=== PATIENT | female | born 1985 | race Caucasian/White ===

== ENCOUNTER 2020-05-25 07:56 | Inpatient (IN) | payer OTHER ==
[~2020-05-25] VITALS: Ht 170.2 cm; Wt 80.9 kg
[2020-05-25] MEDS ORDERED: D5%-LACTATED RINGERS 1,000 ML IV SCH (08:56)
[2020-05-25] MEDS ORDERED: LACTATED RINGERS 1,000 ML IV SCH (08:56)
[2020-05-25] MEDS ORDERED: OXYTOCIN 30U/ 0.9% NaCL 500ML 500 ML IV ONE (08:56)
[2020-05-25] MEDS ORDERED: FENTANYL PF 100 MCG/2ML IV PRN (09:00)
[2020-05-25] MEDS ORDERED: TERBUTALINE 1 MG/ML, 1ML SQ PRN (09:00)
[2020-05-25] MEDS ORDERED: TERBUTALINE 1 MG/ML, 1ML IVPush PRN (09:00)
[2020-05-25] MEDS ORDERED: FENTANYL PF 100 MCG/2ML IVPush PRN (09:00)
[2020-05-25] MEDS ORDERED: PENICILLIN GK 5,000,000 UNITS in DEXTROSE 5% 100 ML IVPB ONE (09:00)
[2020-05-25] MEDS ORDERED: ONDANSETRON 2MG/ML, 2ML IVPush PRN (09:00)
[2020-05-25 09:07] VITALS: BP 107/57
[2020-05-25] MEDS ORDERED: NEWBORN KIT ONE (09:16)
[2020-05-25] MEDS ORDERED: LIDOCAINE 1%, 20ML ONE (09:16)
[2020-05-25] MEDS ORDERED: OXYTOCIN 30U/ 0.9% NaCL 500ML 500 ML ONE ×2 (09:17→13:07)
[2020-05-25] MEDS ORDERED: MISOPROSTOL 200 MCG TABLET ONE (09:17)
[2020-05-25 09:36] LABS: BASOPHILS # (AUTO) 0.03 x10^3/uL (0-0.1); BASOPHILS % (AUTO) 0 % (0-1); EOSINOPHILS # (AUTO) 0.02 x10^3/uL (0-0.4); EOSINOPHILS % (AUTO) 0 % (1-7); LYMPHOCYTES # (AUTO) 1.01 x10^3/uL (1-3.4); LYMPHOCYTES % (AUTO) 11 % (22-44); MD NO; MEAN CORPUSCULAR HEMOGLOBIN 31.8 pg (27.0-34.8); MEAN CORPUSCULAR VOLUME 96.5 fL (80-100); MEAN PLATELET VOLUME 8.6 fL (7.4-10.4); MONOCYTES # (AUTO) 0.48 x10^3/uL (0.2-0.8); MONOCYTES % (AUTO) 5 % (2-9); NEUTROPHILS # (AUTO) 7.28 x10^3/uL (1.8-6.8); NEUTROPHILS % (AUTO) 83 % (42-75); PLATELET COUNT 229 x10^3/uL (130-400); RED BLOOD COUNT 3.85 x10^6/uL (3.82-5.3)
[2020-05-25] MEDS ORDERED: TERBUTALINE 1 MG/ML, 1ML ONE (11:47)
[2020-05-25] MEDS ORDERED: OXYTOCIN 30U/ 0.9% NaCL 500ML 500 ML IV SCH (12:52)
[2020-05-25] MEDS ORDERED: METOCLOPRAMIDE 5 MG/ML, 2ML IV PRN (13:00)
[2020-05-25] MEDS ORDERED: MAGNESIUM HYDROXIDE 8%, 30ML UDC PO PRN (13:00)
[2020-05-25] MEDS ORDERED: METHYLERGONOVINE 0.2 MG/ML IM PRN (13:00)
[2020-05-25] MEDS ORDERED: ACETAMINOPHEN 325 MG TABLET PO PRN (13:00)
[2020-05-25] MEDS ORDERED: CALCIUM CARBONATE 500 MG TAB.CHEW PO PRN (13:00)
[2020-05-25] MEDS ORDERED: ONDANSETRON 2MG/ML, 2ML IV PRN (13:00)
[2020-05-25] MEDS ORDERED: RHOGAM FROM BLOOD BANK 1 NOTE EA IM/IV ONE ×2 (13:00→22:30)
[2020-05-25] MEDS ORDERED: TRANEXAMIC ACID 100 MG/ML, 10ML IV ONE (13:00)
[2020-05-25] MEDS ORDERED: BISACODYL 10 MG SUPP PR PRN (13:00)
[2020-05-25] MEDS ORDERED: MEASLES,MUMPS&RUBELLA VACC/PF 0.5 ML SQ-VACC PRN (13:00)
[2020-05-25] MEDS ORDERED: MISOPROSTOL 200 MCG TABLET PR PRN (13:00)
[2020-05-25] MEDS ORDERED: OXYcodone IR 5MG TABLET PO PRN (13:00)
[2020-05-25] MEDS ORDERED: CARBOPROST TROMETHAMINE 250 MCG/ML, 1ML IM PRN (13:00)
[2020-05-25] MEDS ORDERED: IBUPROFEN 600 MG TABLET PO PRN (13:00)
[2020-05-25] MEDS ORDERED: SIMETHICONE 80 MG CHEW TAB PO PRN (13:00)
[2020-05-25] MEDS ORDERED: OXYcodone/APAP 5/325MG TABLET PO PRN (13:00)
[2020-05-25] MEDS ORDERED: PENICILLIN GK 2,500,000 UNITS in DEXTROSE 5% 100 ML IVPB SCH (13:00)
[2020-05-25] MEDS: OXYTOCIN 30U/ 0.9% NaCL 500ML 500 ML IV SCH ×4 (14:00→15:44)
[2020-05-25 15:10] VITALS: BP 118/75
[2020-05-25 19:30] VITALS: BP 122/72
[2020-05-25 21:20] LABS: BASOPHILS # (AUTO) 0.04 x10^3/uL (0-0.1); BASOPHILS % (AUTO) 0 % (0-1); EOSINOPHILS # (AUTO) 0.02 x10^3/uL (0-0.4); EOSINOPHILS % (AUTO) 0 % (1-7); LYMPHOCYTES # (AUTO) 1.43 x10^3/uL (1-3.4); LYMPHOCYTES % (AUTO) 10 % (22-44); MD NO; MEAN CORPUSCULAR HEMOGLOBIN 32.5 pg (27.0-34.8); MEAN CORPUSCULAR HGB CONC 33.8 g/dL (32.4-35.8); MEAN PLATELET VOLUME 8.8 fL (7.4-10.4); MONOCYTES # (AUTO) 0.75 x10^3/uL (0.2-0.8); MONOCYTES % (AUTO) 5 % (2-9); NEUTROPHILS # (AUTO) 12.66 x10^3/uL (1.8-6.8); NEUTROPHILS % (AUTO) 85 % (42-75); PLATELET COUNT 212 x10^3/uL (130-400); RED BLOOD COUNT 3.48 x10^6/uL (3.82-5.3); RED CELL DISTRIBUTION WIDTH 12.5 % (9.6-15.2)
[2020-05-26] VITALS: BP 109/46
[2020-05-26] MEDS: DOCUSATE 100 MG CAPSULE PO PRN ×3 (00:02→19:26)
[2020-05-26] MEDS: OXYTOCIN 30U/ 0.9% NaCL 500ML 500 ML IV SCH (01:27)
[2020-05-26 04:20] VITALS: BP 107/64
[2020-05-26 07:30] VITALS: BP 122/72
[2020-05-26] MEDS: PRENATAL VIT/IRON/FA 1 EACH TABLET PO SCH (09:00)
[2020-05-26 19:45] VITALS: BP 129/70
[2020-05-27] MEDS: DOCUSATE 100 MG CAPSULE PO PRN (07:55)
[2020-05-27] MEDS: PRENATAL VIT/IRON/FA 1 EACH TABLET PO SCH (07:55)
[2020-05-27] MEDS ORDERED: HEMORRHOIDAL OINT, 57 GM (PREP H) RC PRN (08:00)
[2020-05-27 08:29] VITALS: BP 131/80
== END 2020-05-27 13:29 | disposition home or self-care (01) | DRG 807 ==
LOC: LDOP 07:56 → LDIP 08:52 → 2NW 15:01
PROVIDERS: ADMIT Obstetrics & Gynecology; ATTEND Obstetrics & Gynecology
PROC: 10E0XZZ Delivery of Products of Conception, External Approach (ICD-10-PCS; principal; 2020-05-25)
PROC: 10907ZC Drainage of Amniotic Fluid, Therapeutic from Products of Conception, Via Natural or Artificial Opening (ICD-10-PCS; 2020-05-25)
PROC: 0HQ9XZZ Repair Perineum Skin, External Approach (ICD-10-PCS; 2020-05-25)
DX: O99.824 Streptococcus B carrier state complicating childbirth (principal); Z37.0 Single live birth; Z3A.40 40 weeks gestation of pregnancy; Z20.828 Contact with and (suspected) exposure to other viral communicable diseases; O70.0 First degree perineal laceration during delivery
CPT/HCPCS: 36415; 82803; 85025; 85461; 86592; 86850; 86900; 87635; G0378; J2540; J2790; J2590; J3105